=== PATIENT | female | born 1995 | race Caucasian/White ===

== ENCOUNTER 2021-11-15 18:49 | Emergency (ER) | payer SELFPAY ==
[~2021-11-15] VITALS: Ht 167.6 cm; Wt 65.0 kg
[2021-11-15 18:54] VITALS: BP 104/68
[2021-11-15 19:54] LABS: BASOPHILS % 0.5 % (0.0-2.0); EOSINOPHILS % 0.8 % (0.0-5.0); HEMATOCRIT. 35.5 % (36.0-48.0); HEMOGLOBIN. 11.5 g/dL (12.0-16.0); LYMPHOCYTES % 40.4 % (20.0-50.0); MEAN CORPUSCULAR HEMOGLOBIN 28.5 pg (28.0-32.0); MEAN PLATELET VOLUME 7.9 fl (7.4-10.4); MONOCYTES % 8.4 % (2.0-8.0); NEUTROPHILS % 49.9 % (40.0-76.0); PLATELET 317 x1000/uL (130-400); RED BLOOD CELL COUNT 4.03 mill/uL (4.2-5.4); RED CELL DISTRIBUTION WIDTH 17.5 % (11.6-14.6)
[2021-11-15 20:05] LABS: CHLORIDE 106 mEq/L (98-107)
[2021-11-15 20:10] LABS: ETHANOL BLOOD < 10 mg/dL
== END 2021-11-15 20:29 | disposition left against medical advice (07) ==
LOC: ER 18:49
DX: R46.2 Strange and inexplicable behavior (principal); E87.6 Hypokalemia
CPT/HCPCS: 36415; 80048; 80178; 80307; 80320; 80329; 85025; 99283; G0480